=== PATIENT | female | born 1975 | race Caucasian/White ===

== ENCOUNTER 2019-01-27 20:14 | Emergency (ER) | payer SELFPAY ==
[~2019-01-27] VITALS: Ht 157.5 cm; Wt 80.6 kg
[2019-01-27 20:18] VITALS: Ht 157.5 cm; Wt 80.6 kg
[2019-01-28] MEDS ORDERED: AMOX1TAB10 PO (00:38)
[2019-01-28] MEDS ORDERED: AMOXICILLIN/CLAV 875 MG TAB PO ONE (01:00)
[2019-01-28] MEDS ORDERED: DIPHTH/TET/ACEL PERTUSS (ADULT) 0.5 ML VIAL IM* ONE (01:00)
[2019-01-28] MEDS ORDERED: LIDOCAINE 1% (MDV) 20 ML INJ SC ONE (01:30)
[2019-01-28] MEDS ORDERED: IBUP-1542 PO (03:51)
--- NOTE | 2019-01-28 03:51 | ERD ---
ER Documentation Chief Complaint Chief Complaint DOG BITE TODAY, BLEEDING CONTROLLED HPI Is a 43-year-old female patient who presents to the emergency room with complaint of laceration to right medial posterior foot due to dog bite occurring approximately 6 hours [employer]. This was her own dog she was breaking up a fight. Patient able to ambulate with pain. No other chronic medical conditions. Tdap needs updated. ROS All systems reviewed and are negative except as per history of present illness. Medications Home Meds Active Scripts Ibuprofen* (Motrin*) 600 Mg Tab, 600 MG PO Q6, #30 TAB Prov:LONNIE QUARLES COATER OPERATOR 01/28/19 Amoxicillin/Potassium Clav (Amox-Clav 875-125 mg Tablet) 875-125 mg Tab, 1 TAB PO BID for 7 Days, #14 TAB Prov:LONNIE QUARLES COATER OPERATOR 01/28/19 Allergies Allergies: Coded Allergies: No Known Allergies (Verified Allergy, Unknown, 01/27/19) PMhx/Soc Medical and Surgical Hx: pt denies Medical Hx, pt denies Surgical Hx Hx Alcohol Use: No Hx Substance Use: No Hx Tobacco Use: No Smoking Status: Never smoker FmHx Family History: No diabetes, No coronary disease, No other Physical Exam Vitals Vital Signs Date Temp Pulse Resp B/P (MAP) Pulse Ox O2 O2 Flow FiO2 Time Delivery Rate 01/28/19 98.3 73 18 134/95 100 Room Air 04:03 (108) 01/27/19 98.7 73 16 145/85 98 20:18 (105) Physical Exam Const: No acute distress Head: Atraumatic Eyes: Normal Conjunctiva ENT: Normal External Ears, Nose and Mouth. Neck: Full range of motion. No meningismus. Resp: Clear to auscultation bilaterally Cardio: Regular rate and rhythm, no murmurs Abd: Soft, non tender, non distended. Normal bowel sounds Skin: No petechiae or rashes, abrasion to right distal anterior lower leg, 2 cm laceration with minor avulsion to right posterior foot, mild swelling, +tender, +csm, 5/5 flex/ext, sensation intact Neur: Awake and alert Psych: Normal Mood and Affect Results 24 hrs Laboratory Tests Test 01/28/19 00:58 POC Beta HCG, Qualitative NEGATIVE Current Medications Medications Dose Sig/Anna Start Time Status Last (Trade) Ordered Route PRN Stop Time Admin Dose Reason Admin Diphtheria/ 0.5 ml ONCE ONCE 01/28/19 DC 01/28/19 Tetanus/Acell IM* 01:00 01:05 Pertussis 01/28/19 01:01 (Adacel) 875 mg ONCE ONCE 01/28/19 DC 01/28/19 Amoxicillin/ PO 01:00 01:20 Clavulanate 01/28/19 01:01 Potassium (Augmentin) Lidocaine 20 ml ONCE ONCE 01/28/19 DC (Xylocaine SC 01:30 1% (Mdv) 20 01/28/19 01:58 ml) Procedures/MDM This is a 43-year-old female patient who presents the emergency room with dog bite to right foot. ED COURSE: The patient was stable throughout ED course. I kept the patient and/or family informed of laboratory and diagnostic imaging results throughout the ED course. DIAGNOSTIC IMAGING: Soft tissue gas and soft tissue swelling at the posterior medial aspect of the distal tibia likely corresponds to the site of the dog bite. Recommend clinical correlation for signs of necrotizing soft tissue infection. Negative for evidence of acute fracture in the foot. The patient may benefit from x-rays of t he right ankle. Read by radiologist. PROCEDURES: Laceration Repair by me: Anesthesia: none Location: right medial posterior foot Tendon/Joint/Nerves: No injury Foreign body: None detected after copious irrigation and exploration Technique: 3 steri strips, edges not completely approximated, 2mm gap- chosen due to animal bite, subcut fat avulsion, and increased possibility for infection Complexity: No subcutaneous sutures/mucosal repair/edge excision, minor debridement of subcut fat Post Closure Length: 2 cm Patient's bleeding was easily controlled in the department. RLE placed in supportive splint. +csm after placement, with instructions on care of splint and wound care. MEDICATIONS GIVEN: Tdap, Augmentin, declined analgesic MDM: No evidence of compartment syndrome, neurologic injury, vascular injury, open joint, tendon laceration, or foreign body. Patient is appropriate for outpatient follow up. 48 hour wound check. Scar minimization instructions given. DISPOSITION: The patient has been discharge home to follow-up with community physician. Departure Diagnosis: Primary Impression: Bite wound Condition: Stable Patient Instructions: Animal Bite, General Referrals: [facility] Additional Instructions: Thank you very much for allowing us to participate in your care. Your health and safety is our top priority at [facility]. Call your primary care doctor TOMORROW for an appointment during the next 2-4 days and bring all the information and medications prescribed. Have prescriptions filled and follow precisely the directions on the label. If the symptoms get worse and your provider is unavailable, return to the Emergency Department immediately. COMPLETE ENTIRE COURSE OF ANTIBIOTICS HAVE WOUND CHECKED IN 2 DAYS EITHER HERE AT THIS ER OR AT URGENT CARE OR YOUR PRIMARY CARE PHYSICIAN KEEP WOUND CLEAN AND DRY RETURN FOR FEVER, SWELLING, PAIN, INCREASED DRAINAGE LONNIE QUARLES NP Jan 28, 2019 03:51
[2019-01-28 04:03] VITALS: BP 134/95; PULSE 73; RESP 18
== END 2019-01-28 04:04 | disposition home or self-care (01) ==
LOC: FTE 20:14
DX: S91.311A Laceration without foreign body, right foot, initial encounter (principal); W54.0XXA Bitten by dog, initial encounter; Y92.9 Unspecified place or not applicable; Z23 Encounter for immunization
CPT/HCPCS: 73630; 81025; 90471; 90715